=== PATIENT | male | born 1960 | race American Indian/Alaskan Native ===

== ENCOUNTER 2017-08-17 14:18 | Emergency (ER) | payer SELFPAY ==
[2017-08-17 15:13] LABS: Hematocrit 46.7 % (35.5-45.6); Hemoglobin 15.8 gm/dl (11.8-15.2); Mean Corpuscular HGB Conc 34 % (32-34); Mean Corpuscular Hemoglobin 35 pg (28-32); Mean Corpuscular Volume 103 fl (84-94); Platelet Count 221 K/mm3 (140-440); Red Blood Count 4.54 M/mm3 (3.65-5.03); Red Cell Distribution Width 15.5 % (13.2-15.2)
[2017-08-17 15:27] LABS: BUN/Creatinine Ratio 6; Blood Urea Nitrogen 6 mg/dL (9-20); Hemolysis Index 12
--- NOTE | 2017-08-17 15:42 | Emergency Department Report ---
ED General Adult HPI - General Chief complaint: Seizure Stated complaint: SEIZURE Time Seen by Provider: 08/17/17 15:31 Source: patient, EMS Mode of arrival: Stretcher Limitations: No Limitations - History of Present Illness Initial comments: 57-year-old male states no past medical history says he did have a syncopal spell one time when he got real hot ;not lately today he was helping a friend below insulation into an attic today was in the air conditioning and next thing he knew he was found down and they said he might have a seizure; patient does admit to daily 3-4 beers a day he does occasionally get shakes when he stops drinking but no history of seizures denies any trauma denies any chest pain abdominal pain back pain or other c/o. Last drink was 24 hours ago. Denies any trauma denies any chest pain or palpitations denies any black or bloody stool denies any focal neural complaints -: Gradual, hour(s) Severity scale (0 -10): 0 Associated Symptoms: denies other symptoms, malaise, syncope, weakness. denies : confusion, chest pain, cough, diaphoresis, fever/chills, headaches, loss of appetite, nausea/vomiting, rash, seizure, shortness of breath - Related Data Previous Rx's Medication Instructions Recorded Last Taken Type LORazepam [Ativan] 1 mg PO TID #9 tablet 08/17/17 Unknown Rx Allergies Allergy/AdvReac Type Severity Reaction Status Date / Time No Known Allergies Allergy Verified 08/17/17 14:42 ED Review of Systems ROS: Stated complaint: SEIZURE Other details as noted in HPI Comment: All other systems reviewed and negative Constitutional: denies: diaphoresis, fever, malaise Eyes: denies: eye discharge, vision change ENT: denies: dental pain, hearing loss, epistaxis Respiratory: denies: orthopnea, shortness of breath, SOB with exertion, SOB at rest, stridor Cardiovascular: syncope. denies: chest pain, palpitations, dyspnea on exertion , orthopnea, edema Gastrointestinal: denies: abdominal pain, nausea, vomiting, diarrhea, constipation, hematemesis, melena, hematochezia Skin: denies: change in color, change in hair/nails, pruritus Neurological: other (possible seizure). denies: headache, weakness, numbness, paresthesias, confusion, vertigo ED Past Medical Hx - Past Medical History Previous Medical History?: No - Surgical History Past Surgical History?: Yes Additional Surgical History: dental - Social History Smoking Status: Current Every Day Smoker Substance Use Type: Alcohol - Medications Home Medications: Home Medications Medication Instructions Recorded Confirmed Last Taken Type LORazepam [Ativan] 1 mg PO TID #9 tablet 08/17/17 Unknown Rx ED Physical Exam - General Limitations: No Limitations General appearance: alert, in no apparent distress, anxious - Head Head exam: Present: atraumatic, normocephalic - Eye Eye exam: Present: PERRL, EOMI - ENT ENT exam: Present: normal exam, normal orophraynx - Neck Neck exam: Present: normal inspection, other (nontender, Nexus neg). Absent: tenderness, meningismus - Cardiovascular Cardiovascular Exam: Present: regular rate, normal rhythm, normal heart sounds - GI/Abdominal GI/Abdominal exam: Present: soft, other (pulses equal bilaterally). Absent: distended, tenderness, guarding, rebound, rigid, mass, pulsatile mass - Extremities Exam Extremities exam: Present: normal capillary refill. Absent: pedal edema, joint swelling, calf tenderness - Back Exam Back exam: Present: normal inspection, full ROM. Absent: tenderness, CVA tenderness (R), CVA tenderness (L), muscle spasm, paraspinal tenderness, vertebral tenderness - Neurological Exam Neurological exam: Present: alert, oriented X3, CN II-XII intact. Absent: motor sensory deficit - Psychiatric Psychiatric exam: Present: normal affect, normal mood, anxious. Absent: homicidal ideation, suicidal ideation - Skin Skin exam: Present: warm, normal color ED Course Vital Signs 08/17/17 14:42 Temperature 98.5 F Pulse Rate 114 H Respiratory 18 Rate Blood Pressure 169/122 O2 Sat by Pulse 96 Oximetry ED Medical Decision Making - Lab Data Result diagrams: 08/17/17 14:56 08/17/17 14:56 - EKG Data -: EKG Interpreted by [facility] EKG shows normal: sinus rhythm Rate: normal - EKG Data Interpretation: no acute changes 08/17/17 18:07 Normal sinus rhythm no acute ischemic change - Radiology Data Radiology results: report reviewed - Medical Decision Making Patient's vital signs were improved in the ED after her fluids and benzodiazepine, head CT was no acute process. He did have hypomagnesemia which was replaced in the ED he did in with positive cocaine drug screen, troponin was negative CK was only mildly elevated she was titrated given thiamine and benzodiazepines. Patient states he has had several other previous episodes were he thinks he blacked out history today was possible blackout spell versus seizure. No witnesses are available for interview EMS did state that they think he may have had some tonic-clonic activity with postictal state. On my exam he was alert and oriented 3 denied trauma exam is otherwise unremarkable except for a question of mild tremor. Patient was informed of need for admission to further evaluate for possible syncope versus seizure he does appear to be having some alcohol withdrawal as well and positive cocaine on a urine drug screen he was informed of risks of leaving including cardiogenic syncope and he is alert and oriented 3 alcohol level was negative not clinically intoxicated with capacity he is electing to refuse further evaluation and treatment at this time. His friends come pick him up and he will need outpatient follow-up referral signs were stable R rate was 90 he may have some mild alcohol withdrawal. He will be discharged for outpatient follow- up Critical care attestation.: If time is entered above; I have spent that time in minutes in the direct care of this critically ill patient, excluding procedure time. ED Disposition Clinical Impression: Polysubstance abuse, Seizure Disposition: [id number] LEFT AGAINST MED ADVICE Is pt being admited?: No Condition: Stable Instructions: Alcohol Withdrawal (ED), Polysubstance Abuse (ED), New-Onset Seizure in Adults (ED) Additional Instructions: See the doctor listed return immediately if new alarming symptoms such as chest pain blackout spells headache neck pain neuro complaints such as weakness or slurred speech physical complaints or other problems Prescriptions: LORazepam [Ativan] 1 mg PO TID #9 tablet Referrals: PRIMARY CAREMD [Primary Care Provider] - 3-5 Days KATY MACKAY MD [Staff Physician] - 3-5 Days Time of Disposition: 18:16
[2017-08-17] MEDS ORDERED: NACL 0.9% 1000 ML 1,000 ML IV ONE (15:47)
--- NOTE | 2017-08-17 16:46 | Cat Scan Report ---
FINAL REPORT PROCEDURE: CT head without contrast. TECHNIQUE: Computerized tomography of the head was performed without contrast material. HISTORY: Syncope versus seizure. COMPARISON: No prior studies are available for comparison. FINDINGS: The ventricles are normal in size. The murry matter and white matter appear normal. There are no mass lesions. There is no intracranial hemorrhage. The calvarium appears intact. The mastoid air cells and visualized paranasal sinuses are clear. IMPRESSION: Normal study.
[2017-08-17 16:51] LABS: Bacteria,Urine 1+ /HPF (Negative); Bilirubin,Urine NEG (Negative); Blood,Urine MOD (Negative); Color,Urine Yellow (Yellow); Mucus,Urine FEW /HPF; Urobilinogen,Urine < 2.0 mg/dL (<2.0)
[2017-08-17 17:13] LABS: Amphetamine Screen,Urine PRESUMPTIVE NEGATIVE; Benzodiazepines Screen,Urine PRESUMPTIVE NEGATIVE; Cannabinoid Screen,Urine PRESUMPTIVE NEGATIVE; Methadone Screen,Urine PRESUMPTIVE NEGATIVE; Opiate Screen,Urine PRESUMPTIVE NEGATIVE
[2017-08-17] MEDS ORDERED: ATIVAN IV ONE ×2 (17:22→18:00)
[2017-08-17] MEDS ORDERED: MAGNESIUM SULFATE 2GM/50ML 2 GM/50 ML BAG IV ONE (17:22)
[2017-08-17 17:27] LABS: Cocaine Screen,Urine PRESUMPTIVE POSITIVE
[2017-08-17] MEDS ORDERED: VITAMIN B-1 100 MG in NACL 0.9% 50 ML IV ONE (18:00)
[2017-08-17 20:09] VITALS: BP 125/82
== END 2017-08-17 21:08 | disposition left against medical advice (07) ==
LOC: ED 14:18
DX: F19.10 Other psychoactive substance abuse, uncomplicated (principal); F17.200 Nicotine dependence, unspecified, uncomplicated
CPT/HCPCS: 36415; 70450; 80048; 80307; 81001; 82550; 83735; 84484; 85027; 93005; 93010; 96361; 96365; 96375; 96376; 99284; G0480; J2060; J3411; J3475; J7030; 80320